=== PATIENT | female | born 1930 | race Caucasian/White ===

== ENCOUNTER 2018-02-07 11:16 | Inpatient (IN) | payer MEDICARE, OTHER ==
[~2018-02-07] VITALS: Ht 165.1 cm; Wt 69.5 kg
[~2018-02-07 11:16] MED LIST: ASPI-612 PO; BUSP10TA PO; CALC1TAB75 PO; CALC625T PO; CIPR500T94 PO; DICY20TA30 PO; ESOM40CA PO; ESOM40SU PO; FESO4TAB PO; HYDR-971 PO; LOPE1LIQ7 PO; METO25TA4 PO; MULT1TAB52 PO; NYST1POW2 PO; SIMV40TA3 PO; TRAM50TA PO
[2018-02-07 11:42] VITALS: BP 114/49
[2018-02-07 12:38] LABS: BASO % 0 % (0-3); EOS # 0.7 x10^3/uL (0.0-0.7); EOS % 6 % (0-3); HEMATOCRIT 33.4 % (36.0-47.0); HEMOGLOBIN 10.8 g/dL (12.0-15.5); LYMPH # 1.1 x10^3/uL (1.0-4.8); LYMPH % 9 % (24-48); MEAN CORPUSCULAR HEMOGLOBIN 29 pg (25-35); MEAN CORPUSCULAR HGB CONC 32 g/dL (31-37); MEAN CORPUSCULAR VOLUME 91 fL (79-100); MONO # 1.1 x10^3/uL (0.0-1.1); MONO % 8 % (0-9); NEUT # 10.1 x10^3uL (1.8-7.7); NEUT % 77 % (31-73); PLATELET COUNT 299 x10^3/uL (140-400); RED BLOOD COUNT 3.68 x10^6/uL (3.50-5.40); RED CELL DISTRIBUTION WIDTH 15.8 % (11.5-14.5); WHITE BLOOD COUNT 13.1 x10^3/uL (4.0-11.0)
[2018-02-07] MEDS: GENTAMICIN PER PHARMACY MC PRN (12:45)
[2018-02-07 13:03] LABS: ALBUMIN 3.1 g/dL (3.4-5.0); ALBUMIN/GLOBULIN RATIO 0.7 (1.0-1.7); CALCIUM 8.8 mg/dL (8.5-10.1); CREATININE 1.9 mg/dL (0.6-1.0); GFR 25.1; POTASSIUM 4.1 mmol/L (3.5-5.1); TOTAL BILIRUBIN 0.9 mg/dL (0.2-1.0); TOTAL PROTEIN 7.7 g/dL (6.4-8.2)
[2018-02-07] MEDS ORDERED: CARV6.252 PO (13:43)
[2018-02-07] MEDS ORDERED: ALBU8.5H8 INH (13:43)
[2018-02-07] MEDS ORDERED: CYAN10005 PO (13:43)
[2018-02-07] MEDS ORDERED: TRAZ-85 PO (13:43)
[2018-02-07] MEDS ORDERED: FOLI1TAB16 PO (13:43)
[2018-02-07] MEDS ORDERED: TEMA15CA PO (13:43)
[2018-02-07] MEDS: IV NORMAL SALINE 1,000ML 1,000 ML IV SCH ×2 (13:58→23:59)
[2018-02-07] MEDS: GENTAMICIN SULFATE IV SCH (14:00)
[2018-02-07] MEDS: NORMAL SALINE IV SCH (14:00)
[2018-02-07] MEDS ORDERED: ALBUTEROL SULFATE 8GM INHALER. INH PRN (15:00)
[2018-02-07] MEDS ORDERED: GENTAMICIN PER PHARMACY MC PRN (15:00)
[2018-02-07] MEDS ORDERED: traZODone 50 MG TABLET. PO PRN (15:15)
[2018-02-07] MEDS ORDERED: ALBUTEROL SULFATE 2.5 MG/3 ML NEBU. NEB PRN (15:15)
[2018-02-07] MEDS ORDERED: HYDROcodone/APAP 5/325MG 1 TAB TABLET PO PRN (15:15)
[2018-02-07 15:29] VITALS: BP 137/52
[2018-02-07] MEDS ORDERED: TEMAZEPAM 7.5 MG CAPSULE PO PRN (15:30)
[2018-02-07] MEDS: CARVEDILOL 6.25 MG TABLET PO SCH (17:31)
[2018-02-07 19:51] LABS: AMORPHOUS SEDIMENT,UR PRESENT /HPF; BACTERIA,URINE FEW /HPF (0-FEW); BILIRUBIN,URINE NEG (NEG); CLARITY,URINE CLOUDY; COLOR,URINE YELLOW; GLUCOSE,URINE NEG (NEG); NITRITE,URINE NEG (NEG); RBC,URINE >40 /HPF (0-2); SQUAMOUS EPITHELIAL CELL,UR OCC /LPF; UROBILINOGEN,URINE 0.2 mg/dL (0.2 mg/dL)
[2018-02-07 20:52] VITALS: BP 95/59
[2018-02-07] MEDS ORDERED: GENTAMICIN RANDOM LEVEL. MC ONE (21:00)
[2018-02-07] MEDS: SIMVASTATIN 40 MG TABLET. PO SCH (21:04)
[2018-02-07] MEDS: ACETAMINOPHEN 325 MG TABLET PO PRN (21:04)
[2018-02-07] MEDS: HEPARIN PF for SUB-Q USE 5,000 UNIT/0.5 ML VIAL. SQ SCH (22:14)
[2018-02-07 23:09] VITALS: BP 90/54
[2018-02-08] VITALS (7 sets, daily range): BP systolic 95–157; BP diastolic 51–79
[2018-02-08] MEDS: HEPARIN PF for SUB-Q USE 5,000 UNIT/0.5 ML VIAL. SQ SCH ×3 (05:38→21:19)
[2018-02-08 06:03] LABS: BASO % 0 % (0-3); EOS # 0.8 x10^3/uL (0.0-0.7); EOS % 7 % (0-3); HEMATOCRIT 32.2 % (36.0-47.0); HEMOGLOBIN 10.5 g/dL (12.0-15.5); LYMPH % 9 % (24-48); MEAN CORPUSCULAR HEMOGLOBIN 30 pg (25-35); MEAN CORPUSCULAR HGB CONC 33 g/dL (31-37); MEAN CORPUSCULAR VOLUME 91 fL (79-100); MONO # 1.1 x10^3/uL (0.0-1.1); MONO % 9 % (0-9); NEUT # 8.4 x10^3uL (1.8-7.7); NEUT % 75 % (31-73); PLATELET COUNT 299 x10^3/uL (140-400); RED BLOOD COUNT 3.54 x10^6/uL (3.50-5.40); WHITE BLOOD COUNT 11.2 x10^3/uL (4.0-11.0)
[2018-02-08 06:09] LABS: CALCIUM 8.1 mg/dL (8.5-10.1); CREATININE 1.8 mg/dL (0.6-1.0); GFR 26.7; POTASSIUM 4.1 mmol/L (3.5-5.1)
[2018-02-08] MEDS: DICYCLOMINE HCL 20 MG TABLET PO SCH (09:40)
[2018-02-08] MEDS: busPIRone 10 MG TABLET. PO SCH (09:40)
[2018-02-08] MEDS: MULTIVITAMIN with MINERAL TABLET. PO SCH (09:40)
[2018-02-08] MEDS: CALCIUM POLYCARBOPHIL 625 MG TABLET PO SCH (09:40)
[2018-02-08] MEDS: CARVEDILOL 6.25 MG TABLET PO SCH ×2 (09:40→16:28)
[2018-02-08] MEDS: PANTOPRAZOLE 40 MG TABLET. PO SCH (09:41)
[2018-02-08] MEDS: IV NORMAL SALINE 1,000ML 1,000 ML IV SCH ×2 (09:47→22:20)
[2018-02-08] MEDS: GENTAMICIN PER PHARMACY MC PRN (14:16)
[2018-02-08] MEDS: ACETAMINOPHEN 325 MG TABLET PO PRN (16:40)
[2018-02-08] MEDS ORDERED: FOLIC ACID 1 MG TABLET PO SCH (21:00)
[2018-02-08] MEDS: SIMVASTATIN 40 MG TABLET. PO SCH (21:06)
[2018-02-08] MEDS: LACTOBACILLUS RHAMNOSUS GG 1 CAPSULE. PO SCH (21:06)
--- NOTE | 2018-02-09 01:07 | PN ---
DATE: 02/08/2018 SUBJECTIVE: The patient in for sepsis, urinary tract infection. White count is down from 13, down to 11. She is resting fairly comfortably. BUN and creatinine remain basically stable. Urine cultures are still pending. Blood growth is negative. The patient continues to be treated with IV gentamicin, make further evaluation on her as indicated. Otherwise, the patient resting fairly comfortably. OBJECTIVE: VITAL SIGNS: Blood pressure 157/64, respiratory rate 16, pulse 88, temperature 98.1. LUNGS: Clear. CARDIOVASCULAR: Stable. ABDOMEN: Soft, nontender. No rebound or guarding. Positive bowel sounds. No hepatosplenomegaly was noted. IMPRESSION: Sepsis, pyelonephritis with Escherichia coli with multiple resistance. Continue on IV gentamicin, make arrangements for outpatient therapy. WOLFGANG JOHNSON MD DR: LYNN/randall JOB#: [id number] / [id number]
[2018-02-09 05:31] VITALS: BP 170/76
[2018-02-09] MEDS: HEPARIN PF for SUB-Q USE 5,000 UNIT/0.5 ML VIAL. SQ SCH (06:22)
[2018-02-09] MEDS: LACTOBACILLUS RHAMNOSUS GG 1 CAPSULE. PO SCH (09:02)
[2018-02-09] MEDS: MULTIVITAMIN with MINERAL TABLET. PO SCH (09:02)
[2018-02-09] MEDS: CALCIUM POLYCARBOPHIL 625 MG TABLET PO SCH (09:02)
[2018-02-09] MEDS: DICYCLOMINE HCL 20 MG TABLET PO SCH (09:02)
[2018-02-09] MEDS: CARVEDILOL 6.25 MG TABLET PO SCH (09:03)
[2018-02-09] MEDS: busPIRone 10 MG TABLET. PO SCH (09:03)
[2018-02-09] MEDS: PANTOPRAZOLE 40 MG TABLET. PO SCH (09:03)
[2018-02-09] MEDS ORDERED: GENT40VI MC (10:45)
[2018-02-09 11:00] VITALS: BP 117/51
[2018-02-09] MEDS: GENTAMICIN SULFATE IV SCH (13:01)
[2018-02-09] MEDS: NORMAL SALINE IV SCH (13:01)
--- NOTE | 2018-02-21 10:29 | DS ---
DATE OF DISCHARGE: 02/09/2018 HOSPITAL COURSE: The patient came in with a resistant strain of bacteria. She had been treated as an outpatient; however, she was unable to control the infection and got progressively worse. There was concern that the patient was septic. She had low blood pressure initially. Her blood pressure dropped down into 90/54, temperature of 101, pulse of 110, actually once temperature went up right to 102. The patient made good progress during the rest of her hospitalization. She was placed on IV antibiotic therapy, placed on gentamicin one of the antibiotics that showed sensitivity to this particular organism, one of that was done from outpatient cultures that were available. In any case, the patient made good progress. She was discharged home. DISCHARGE INSTRUCTIONS: She will be on a regular diet, decreased activity. MEDICATIONS: See MRAD. IMPRESSION: Sepsis, pyelonephritis, Escherichia coli. ____ Dehydration, anemia of chronic disease, CKD 3. PLAN: As above. WOLFGANG JOHNSON MD DR: LYNN/randall JOB#: [id number] / [id number]
== END 2018-02-09 13:55 | disposition home or self-care (01) | DRG 871 ==
LOC: 1 SOUTH 11:16
PROVIDERS: ADMIT Family Medicine; ATTEND Family Medicine
PROC: 05HY33Z Insertion of Infusion Device into Upper Vein, Percutaneous Approach (ICD-10-PCS; principal; 2018-02-07)
DX: A41.9 Sepsis, unspecified organism (principal); N17.0 Acute kidney failure with tubular necrosis; N12 Tubulo-interstitial nephritis, not specified as acute or chronic; N18.4 Chronic kidney disease, stage 4 (severe); B96.20 Unspecified Escherichia coli [E. coli] as the cause of diseases classified elsewhere; Z16.24 Resistance to multiple antibiotics; E86.0 Dehydration; I95.9 Hypotension, unspecified
CPT/HCPCS: 36415; 36569; 80048; 80053; 80170; 81001; 83605; 85025; 87040; 87086; J1580; J7030

== ENCOUNTER → 2021-02-23 | Outpatient (CLI) | payer MEDICARE, OTHER ==
[~2021-02-23] MED LIST changes: +ALBU2.5V8 INH; -ASPI-612 PO; +ASPI-889 PO; +CALC-628 PO; -CALC1TAB75 PO; +CARV6.2541 PO; +CYAN-25 PO; +FOLI1TAB16 PO; +GENT40VI MC; +HYDR-3165 PO; -HYDR-971 PO; +IOHEXOL 240 MG/ML 50ML VIAL. ONE; +MULT-445 PO; -MULT1TAB52 PO; +SIMV40TA18 PO; -SIMV40TA3 PO; +TEMA15CA PO; +TRAZ-120 PO
--- NOTE | 2021-02-23 09:53 | RAD ---
EXAMINATION: CT abdomen and pelvis without IV contrast. INDICATION:89 years, Female, stage III kidney failure, presented with melena, evaluate for GI bleedin g. TECHNIQUE: Axial CT images of the abdomen and pelvis were obtained. Coronal and sagittal reformatted performed. COMPARISON: None. Exposure: One or more of the following individualized dose reduction techniques were utilized for thi s examination: 1. Automated exposure control 2. Adjustment of the mA and/or kV according to patient size 3. Use of iterative reconstruction technique. FINDINGS: LOWER CHEST: Elevation of the right hemidiaphragm with right basilar subsegmental atelectasis. Dense calcification of the aortic and mitral valve annuli. ABDOMEN/PELVIS: Within limitation of noncontrast exam, Visualized liver is unremarkable. Cholecystectomy. Central intrahepatic extrahepatic biliary ductal d ilation with smooth tapering distally, likely secondary to postcholecystectomy status. Unremarkable s pleen. Mildly atrophic pancreas with fat infiltration. Nodular thickening of the left adrenal gland w ithout discrete nodule. Right adrenal gland is normal. Atrophic kidneys with diffuse cortical thinnin g and multiple bilateral simple and mildly complex cysts; some of which demonstrate internal septatio ns. Limited evaluation of these cysts due to lack IV contrast. The largest cyst in the lower pole lef t kidney measures 6.5 cm. No hydronephrosis in either kidney. No nephrolithiasis. Stomach is unremarkable. No bowel obstruction or wall thickening. Colonic diverticulosis, particularl y in the sigmoid colon. No CT evidence of acute diverticulitis. Small uncomplicated duodenal divertic ulum. Moderate to severe aortoiliac atherosclerotic calcifications without dilation. No pneumoperiton eum or ascites. No abdominopelvic lymphadenopathy by size criteria. Unremarkable urinary bladder. Hys terectomy. No suspicious pelvic masses. MUSCULOSKELETAL: Small fat-containing umbilical hernia. Severe multilevel degenerative changes in the spine. No acute osseous process. Calcified foci in the subcutaneous tissue of the gluteal regions, likely representin g injection granulomas. IMPRESSION: Within limitation of noncontrast exam, 1. Evaluation of GI bleeding is limited by lack of IV contrast. 2. No acute abnormality in the abdomen or pelvis. 3. Atrophic kidneys with multiple bilateral simple and mildly complex cysts measures up to 6.5 cm; so me of which demonstrate internal septations. Limited evaluation of these cysts due to lack of IV cont rast. Consider further evaluation with nonemergent renal ultrasound, as warranted. 4. Colonic diverticulosis, particularly in the sigmoid colon. 5. Other chronic/incidental findings, as described above. Electronically signed by: Cesar Webster MD (02/23/2021 9:50 AM) [facility]
== END ==
LOC: CT 08:20
PROVIDERS: ATTEND Family Medicine
DX: K57.30 Diverticulosis of large intestine without perforation or abscess without bleeding (principal); N26.1 Atrophy of kidney (terminal); N28.1 Cyst of kidney, acquired
CPT/HCPCS: 74176

== ENCOUNTER → 2021-05-14 | Outpatient (CLI) | payer MEDICARE, OTHER ==
[~2021-05-14] MED LIST changes: -IOHEXOL 240 MG/ML 50ML VIAL. ONE
--- NOTE | 2021-05-14 10:35 | RAD ---
Study: CT abdomen/pelvis without intravenous contrast Indication: Hydronephrosis. History of kidney failure. Comparison: Most recently on 02/23/2021 Technique: Helical CT imaging performed of the abdomen and pelvis without the use of intravenous cont rast. Sagittal and coronal reformats were obtained. One or more of the following individualized dose reduction techniques were utilized for this examinat ion: 1. Automated exposure control 2. Adjustment of the mA and/or kV according to patient size 3. Use of iterative reconstruction technique. Findings: Inherently limited evaluation without intravenous contrast. Chest: Dense circumferential mitral annular mineralization. Aortic valve prosthesis. Trivessel calcif ic coronary artery disease. Several granulomas. Noncalcified mediastinal/hilar lymph nodes do not dominga t pathologic criteria based on size. Scattered atelectasis and subpleural fibrosis. Asymmetric elevat ion of the right hemidiaphragm. A few punctate pulmonary nodules not meeting size criteria for dedica kp follow-up unless there are risk factors for lung malignancy. Liver: No newly appreciated focal hepatic abnormality. Gallbladder/Biliary Tree: Absent gallbladder. Unchanged degree of common duct prominence typical of r eservoir effect and/or senescent dilatation. Pancreas: Unchanged. Spleen: Normal in size. Adrenal Glands: Unchanged morphology. Kidneys/Ureters/Bladder: Numerous bilateral renal cystic foci without any relevant change in size or density. A few associated calcifications are no different. As before, atrophy and cortical thinning o f the left more so than right kidneys. No hydronephrosis or hydroureter. Unremarkable urinary bladder . Reproductive Organs: Absent uterus. No adnexal mass. Colon: Pancolonic diverticulosis without diverticulitis. Mild degree of constipation. Appendix: Not visualized. Small Bowel: Nonobstructed. Stomach: No discrete abnormality noting incomplete distention. Vasculature: Extensive calcific atherosclerosis. Incomplete assessment for the degree of associated s tenosis with without contrast. At least 50 percent stenoses presumably present along portions of the iliac vessels. Lymph Nodes: No lymphadenopathy by size criteria. Peritoneum and Body Wall: No free fluid or pneumoperitoneum. Unchanged fat-containing umbilical herni a. Tiny ventral midline fat-containing hernias unchanged at the mid abdomen. Bones: Osteopenia. Levoscoliosis of the lumbar spine centered at L3-L4. Degenerative leftward transla tion of L4 on L5 and rightward translation of L2 on L3. No concerning vertebral body height loss. Fac et arthrosis greatest at the mid to lower lumbar spine. Osseous neural foraminal stenosis greatest on the left at L5-S1 and on the right at L4-L5. Central canal narrowing favored greatest at L2-L3 and L 4-L5. Miscellaneous: None. Impression: 1. Numerous renal cysts bilaterally on a background of left more so than right atrophy and cortical thinning. No cyst has significantly changed in size or developed any new complex features. Note is ma de that these are not fully evaluated without IV contrast. No hydronephrosis or other acute abnormali ty of the kidneys/collecting system. 2. Numerous chronic observations described in the body of the report without significant change from the comparison. Electronically signed by: JAQUELIN REIS MD (05/14/2021 10:32 AM) [facility]
== END ==
LOC: CT 07:49
PROVIDERS: ATTEND Urology
DX: N28.1 Cyst of kidney, acquired (principal); N26.1 Atrophy of kidney (terminal); N13.39 Other hydronephrosis; R59.0 Localized enlarged lymph nodes; K57.30 Diverticulosis of large intestine without perforation or abscess without bleeding; K42.9 Umbilical hernia without obstruction or gangrene; M85.88 Other specified disorders of bone density and structure, other site; K59.00 Constipation, unspecified; I25.10 Atherosclerotic heart disease of native coronary artery without angina pectoris; J84.10 Pulmonary fibrosis, unspecified; M41.86 Other forms of scoliosis, lumbar region; M47.816 Spondylosis without myelopathy or radiculopathy, lumbar region; M48.07 Spinal stenosis, lumbosacral region
CPT/HCPCS: 74176